=== PATIENT | female | born 1985 | race Caucasian/White ===

== ENCOUNTER 2019-07-11 20:59 | Emergency (ER) | payer MEDICAID, OTHER ==
[~2019-07-11] VITALS: Ht 170.2 cm; Wt 62.3 kg
[2019-07-11] MEDS ORDERED: ondansetron 4mg rapidly disintigrating tab PO ONE (21:25)
[2019-07-11] MEDS ORDERED: LORazepam 1 MG tablet PO ONE (21:45)
[2019-07-11] MEDS ORDERED: METR-159 PO (21:54)
[2019-07-11] MEDS ORDERED: normal saline 1000ML IV soln IVB ONE ×2 (22:05→23:20)
--- NOTE | 2019-07-11 22:39 | NUR ---
relieving RN for break, pt admits to doing meth 2 weeks ago "but it is not my drug choice", stopped doing heroin January 2019
[2019-07-11 22:42] LABS: BASOPHILS % (AUTO) 0.6 % (0-1); EOSINOPHILS % (AUTO) 0.1 % (0-6); HEMATOCRIT 38.5 % (35.0-45.0); HEMOGLOBIN 13.3 g/dl (12.0-16.0); LYMPHOCYTES # (AUTO) 3.3 X10'3 (1.1-4.8); LYMPHOCYTES % (AUTO) 42.1 % (21-51); MEAN CORPUSCULAR HEMOGLOBIN 32.2 PG (27.0-31.0); MEAN CORPUSCULAR HGB CONC 34.5 g/dL (33.0-36.5); MEAN CORPUSCULAR VOLUME 93.2 FL (78-98); MEAN PLATELET VOLUME 8.8 FL (7.4-10.4); MONOCYTES # (AUTO) 0.4 X10'3 (0-0.9); MONOCYTES % (AUTO) 4.8 % (2-12); NEUTROPHILS % (AUTO) 52.4 % (42-75); PLATELET COUNT 242 X10'3 (140-440); RED BLOOD COUNT 4.13 X10'6 (4.20-5.60); RED CELL DISTRIBUTION WIDTH 12.9 % (11.5-14.5); WHITE BLOOD COUNT 7.7 X10'3 (4.5-11.0)
[2019-07-11 22:53] LABS: PARTIAL THROMBOPLASTIN TIME 29 SECONDS (22-32)
[2019-07-11 23:05] LABS: ALANINE AMINOTRANSFERASE 42 U/L (12-78); ALBUMIN 4.6 G/DL (3.4-5.0); ALBUMIN/GLOBULIN RATIO 1.2 (1.1-1.5); ALKALINE PHOSPHATASE 57 IU/L (46-116); ANION GAP 11 (8-16); ASPARTATE AMINO TRANSFERASE 24 U/L (10-37); BILIRUBIN,TOTAL 0.7 MG/DL (0.1-1.0); BLOOD UREA NITROGEN 16 MG/DL (7-18); BUN/CREATININE RATIO 14.4 (6.6-38.0); CALCIUM 9.1 MG/DL (8.5-10.1); CHLORIDE 103 MMOL/L (99-107); CREATININE 1.11 MG/DL (0.40-0.90); GLUCOSE 86 MG/DL (70-104); LIPASE 62 U/L (73-393); SODIUM 142 MMOL/L (135-145); TOTAL CARBON DIOXIDE 27.8 MMOL/L (24-32); TOTAL PROTEIN 8.4 G/DL (6.4-8.2); eGFR 56 ML/MIN
[2019-07-11 23:09] LABS: ETHANOL < 0.010 GM/DL (0.0-0.010)
[2019-07-11 23:12] LABS: POTASSIUM 2.8 MMOL/L (3.5-5.1)
[2019-07-11] MEDS ORDERED: potassium Cl 20 mEq SR tablet PO ONE (23:20)
[2019-07-11] MEDS: POTASSIUM BICARB 20meq eff tab 20 MEQ TABLET.EFF PO ONE ×2 (23:36→23:38)
[2019-07-11] MEDS ORDERED: potassium Cl 20 mEq SR tablet PO STA (23:39)
[2019-07-12 00:39] VITALS: BP 116/72
--- NOTE | 2019-07-12 03:01 | NUR ---
PT UNABLE TO PROVIDE A STOOL OR URINIE SAMPLE PRIOR TO DC.
== END 2019-07-12 03:05 | disposition home or self-care (01) ==
LOC: ER 21:00
DX: R11.2 Nausea with vomiting, unspecified (principal); B89 Unspecified parasitic disease; A07.1 Giardiasis [lambliasis]; R51 Headache; F15.90 Other stimulant use, unspecified, uncomplicated; Z88.0 Allergy status to penicillin; Z91.048 Other nonmedicinal substance allergy status; Z79.899 Other long term (current) drug therapy
CPT/HCPCS: 36415; 80053; 80320; 83690; 84443; 85025; 85610; 85730; 96360; 96361; 99284; J7030